=== PATIENT | male | born 1945 | race Caucasian/White ===

== ENCOUNTER 2023-09-20 09:03 | Emergency (ER) | payer OTHER, SELFPAY ==
[2023-09-20] VITALS (12 sets, daily range): BP systolic 143–187; BP diastolic 76–102; PULSE 55–72; RESP 12–22; TEMP 36.4–37; O2SAT 95–99; BMI 33.7
--- NOTE | 2023-09-20 09:41 | ED.DIZZY ---
HPI - Dizziness General Chief Complaint: Dizziness Stated Complaint: vertigo, sent by pcp Time Seen by Provider: 09/20/23 09:10 Source: patient Mode of arrival: Ambulatory History of Present Illness HPI Narrative: Patient is a 77-year-old male history of hypertension hyperlipidemia presents today with 2 days of dizziness. He reports that he was feeling his normal self and doing well until suddenly he got up in the middle of night to use the restroom he felt like he was very off balance. Over the last 48 hours he feels like he as needed to hold onto things. Yesterday he would multiple episodes of dizziness and vomiting. He actually had a routine appointment with his PCP yesterday who recommended meclizine in the Ulysses maneuver. He tried the Ulysses maneuver at home he said it made it worse he does not feel any better. He has no numbness tingling or weakness. He does feel like the room is moving left to right. He was able to sleep last night without any sort of difficulty. He has no chest pain or palpitations. Related Data Home Medications Medication Instructions Recorded Confirmed NITROGLYCERIN (#NITROSTAT) 0.4 mg sublingual PRN ##0 03/07/11 OMEPRAZOLE 20 mg PO Q DAY ##0 03/07/11 amlodipine 10 mg tablet (Norvasc) 10 mg PO Q DAY ##0 03/07/11 simvastatin 20 mg tablet (Zocor) 20 mg PO HS ##0 03/07/11 ERGOCALCIFEROL (VITAMIN D2) 8,000 iu PO ##0 08/31/16 (CALCIFEROL) allopurinol 300 mg tablet 300 mg PO ##0 08/31/16 diclofenac sodium 25 mg 50 mg OPHTH ##0 08/31/16 tablet,delayed release losartan 25 mg tablet 25 mg PO QDAY ##0 08/31/16 Previous Rx's Medication Instructions Recorded metoprolol tartrate 50 mg tablet 50 mg PO BID #60 tabs 09/01/16 meclizine 25 mg tablet 25 mg PO TID PRN dizziness #10 tabs 09/20/23 ondansetron 4 mg disintegrating 4 mg PO Q8H PRN nausea and 09/20/23 tablet vomiting #10 tabs Allergies Allergy/AdvReac Type Severity Reaction Status Date / Time No Known Drug Allergies Allergy Verified 09/20/23 09:47 Patient History Social History Smoking Status: Never smoker Smoking Status: Never smoker alcohol intake frequency: 0-2 drinks per day Substance Use Type: does not use Exam Initial Vital Signs Initial Vital Signs: Vital Signs Temperature 97.6 F 09/20/23 09:13 Pulse Rate 72 09/20/23 09:13 Respiratory Rate 20 09/20/23 09:13 Blood Pressure 187/102 H 09/20/23 09:13 Pulse Oximetry 96 09/20/23 09:13 Oxygen Delivery Method Room Air 09/20/23 09:13 GENERAL: Alert very pleasant 77-year-old male HEENT: Head atraumatic,EOMI, pupils reactive, no nystagmus, face symmetric, moist mucous membranes CARDIOVASCULAR: Regular rate and rhythm without murmurs, rubs or gallops. RESPIRATORY: Breath sounds equal bilaterally, no wheezes rales or rhonchi. ABDOMEN: Soft, nontender. Normoactive bowel sounds all 4 quadrants. No guarding or rebound. EXTREMITIES: Normal range of motion, no clubbing or edema. Neurovascularly intact NEUROLOGICAL: Alert and oriented x4.Normal gait and speech. Cranial nerves II through XII grossly intact. Good bteyqi-xa-oxor, good nxup-fa-ljhw, strength equal bilaterally, no dysarthria or aphasia, sensation in tact to soft touch bilaterally, no visual changes, no facial droop SKIN: Warm, dry, no laceration, no petechiae, no rashes or lesions. Scores NIH Stroke Scale Level of Conciousness: Alert, keenly responsive Ask month/age: Answers both questions correctly. Open/close eyes, close hand: Performs both tasks correctly Best gaze horizontal: Normal Visual lea: No visual loss Facial palsy: Normal symetrical movement Left arm drift: No drift for full 10 sec Right arm drift: No drift for full 10 sec Left leg drift: No drift for full 5 sec Right leg drift: No drift for full 5 sec Limb ataxia: Absent Sensory on face/arms/legs: Normal, no sensory loss Best language: No aphasia, normal Dysarthria: Normal Extinction or inattention: No abnormality Total NIH Stroke scale score: 0 Course Orders Ordered: ED Orders 09/20/23 12:42 MR head/brain wo con Stat Discontinued Medications Sodium Chloride (Normal Saline 0.9%) 1,000 mls @ 150 mls/hr IV CONT MATTHEW Last Infusion: 09/20/23 13:45 Dose: 0 mls/hr Documented By: Admin: 09/20/23 09:56 Dose: 150 mls/hr Documented By: MARY Meclizine HCl (Meclizine Hcl 12.5 Mg Tablet) 50 mg PO NOW ONE Stop: 09/20/23 09:44 Last Admin: 09/20/23 09:56 Dose: 50 mg Documented By: MARY Vital Signs Vital signs: Vital Signs - 8 hr 09/20/23 11:32 09/20/23 12:00 09/20/23 13:45 Temperature 98.6 F Pulse Rate 58 L 58 L 59 L Respiratory Rate 20 18 20 Blood Pressure 157/82 H 146/83 H 147/76 H Pulse Oximetry 97 96 98 Oxygen Delivery Method Room Air Room Air Room Air MDM - Dizziness Lab Data 09/20/23 09:52 09/20/23 09:52 Labs: Lab Results 09/20/23 Range/Units 09:52 WBC 6.0 (4.5-11.0) X10^3/uL RBC 4.58 (4.5-5.9) X10^6/uL Hgb 14.7 (13.5-17.5) g/dL Hct 43.4 (41-53) % MCV 94.9 (80-100) fL MCH 32.1 (26-34) PG MCHC 33.9 (30-36) % RDW 13.3 (11.6-14.8) % Plt Count 210 (150-400) X10^3/uL Neut % (Auto) 75.8 H (50-75) % Lymph % (Auto) 17.6 L (25-40) % [place] % (Auto) 4.8 (3-14) % Eos % (Auto) 1.2 L (2-4) % Baso % (Auto) 0.6 (0-2) % Neut # (Auto) 4600 (1831-5682) /uL Lymph # (Auto) 1100 (2197-6760) /uL [place] # (Auto) 300 (0-900) /uL Eos # (Auto) 100 (0-450) /uL Baso # (Auto) 0 (0-100) /uL Sodium 137 (137-145) mmol/L Potassium 4.0 (3.4-5.1) mmol/L Chloride 100 (98-107) mmol/L Carbon Dioxide 32 (22-32) mmol/L BUN 14 (9-20) mg/dL Creatinine 0.88 (0.66-1.25) mg/dL Estimated GFR > 60 (>60) mL/min BUN/Creatinine Ratio 15.9 (6-22) Glucose 136 H (80-110) mg/dL Calcium 9.9 (8.4-10.2) mg/dL Total Bilirubin 0.8 (0.2-1.3) mg/dL AST 34 (17-59) IU/L ALT 46 (<50) IU/L Alkaline Phosphatase 54 (38-126) U/L Total Creatine Kinase 93 (55-170) U/L Troponin I < 0.012 (0.01-0.034) ng/mL Total Protein 8.2 (6.3-8.2) g/dL Albumin 4.6 (3.5-5.0) g/dL Globulin 3.6 (1.7-4.1) g/dL Albumin/Globulin Ratio 1.3 (1.0-2.8) Lipase 75 (23-300) U/L Imaging Data CTA - brain/neck: Radiologist's Impression: PROCEDURE: CT ANGIO HEAD AND NECK INDICATIONS: dizzy x 2 days TECHNIQUE: After the administration of intravenous contrast, 1 mm thick sections acquired from the aortic arch through the [place] of [place]. MIP reformats of the arterial vasculature were utilized. For radiation dose reduction, the following was used: automated exposure control, adjustment of mA and/or kV according to patient size. COMPARISON: None. FINDINGS: Cerebral CT Angiogram: Internal carotid arteries: No acute findings. Intracranial ICA are patent with no significant stenosis. No occlusion. No aneurysm. Anterior cerebral arteries: Unremarkable. No significant stenosis. No occlusion. No aneurysm. Middle cerebral arteries: Unremarkable. No significant stenosis. No occlusion. No aneurysm. 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 The P2 segment is supplied by a widely patent posterior communicating artery. Remainder of the distal vasculature unremarkable. Basilar artery: Unremarkable. No significant stenosis. No occlusion. No aneurysm. Vertebral arteries: Unremarkable as visualized. Dural venous sinuses: Unremarkable given phase of enhancement. Other: Arterial phase brain parenchyma is unremarkable. Mucosal thickening noted along the floor of the maxillary sinus Neck CT Angiogram: Internal carotid arteries: Unremarkable. No significant stenosis. No dissection or occlusion. Trace atherosclerotic calcification noted in the left proximal ICA without stenosis Common carotid arteries: Unremarkable. No significant stenosis. No dissection or occlusion. External carotid arteries: Unremarkable. No occlusion. Vertebral arteries: Unremarkable. No significant stenosis. No dissection or occlusion. 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 Origins of the great vessels unremarkable. IMPRESSION: 1. Unremarkable CT angiogram of the head and neck without evidence of significant vascular stenosis, large vessel occlusion, or aneurysm. 2. 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 Approved by: Nuno Carmen M.D. on 09/20/2023 at 9:28 MR Brain: Radiologist's Impression: PROCEDURE: MR HEAD/BRAIN WO CON INDICATIONS: on going dizziness TECHNIQUE: Non-contrast axial T1 spin echo, axial T2 fast spin echo, sagittal and axial FLAIR, coronal T2 fast spin echo, axial gradient echo, axial diffusion and ADC through the brain. COMPARISON: [facility], CT, CT ANGIO HEAD AND NECK, 09/20/2023, 10:04. [facility], CR, XR CHEST 1V, 09/20/2023, 9:52. FINDINGS: Image quality: Excellent. CSF spaces: Ventricles appear symmetric in size and shape. Basal cisterns are patent. No extra-axial fluid collections. Brain: No intracranial bleeds or mass effects. There is cerebral volume loss for age. There are periventricular and deep white matter chronic small vessel ischemic changes. Brainstem appears normal. Diffusion-weighted images show no acute infarct. No chronic ischemic insults. Normal intravascular flow voids are present. Skull and face: Calvarial bone marrow is normal in signal. Orbits are normal. Sinuses: Moderate mucosal thickening can be seen within the maxillary sinuses. Xgqp-cs-vziiqzcs mucosal thickening can be seen elsewhere. IMPRESSION: No acute intracranial process is seen. No findings of acute or subacute infarction can be seen. Additional findings: Maxillary sinus disease Dictated by: Oc Echols M.D. on 09/20/2023 at 12:02 Approved by: Oc Echols M.D. on 09/20/2023 at 12:03 ECG Data Interpretation: Normal sinus rhythm rate 66 MA interval 156 QRS [address] changes MDM Narrative Medical decision making narrative: Patient 77-year-old male history of hyperlipidemia hypertension presenting today with 48 hours dizziness. Symptoms are definitely worse with movement can find positions of comfort and sleep at night. NIH stroke scale is 0 Blood work has been reviewed no clinical significant abnormalities Imaging reviewed CT angio head and neck no critical stenosis or masses chest x-ray no acute findings MRI no evidence of stroke EKG reviewed Patient's symptoms are definitely worse with movement he has no nystagmus symptoms are better after meclizine. CT angio does not show critical stenosis or mass. Patient reports that he still isn't feeling quite right he is having some visual difficulty he tried to ambulate to the restroom but he still needed little assistance and felt a little bit off. MRI was ordered and fortunately did not show any posterior stroke. Patient's symptoms are consistent with vertigo Feeling better after meclizine and ambulated with a steady gait. Discharge Plan Departure Patient Disposition: Home Clinical Impression: Benign paroxysmal positional vertigo Instructions: DI for Vertigo Activity Restrictions/Additional Instructions: *You have been diagnosed with vertigo *What to do: At this time I hope that this improves for you. You may require an MRI if symptoms continue please talk to your PCP about *Continue to take medications as directed Meclizine 25-50 mg every 8 hours if needed for dizziness Zofran 4 mg every 8 hours if needed for nausea or vomiting *Follow up with your primary care provider in 2-3 days or call [phone] *Return to ER if you should have increased dizziness headache or fall [or] any new, worsening or concerning symptoms Prescriptions: New meclizine 25 mg tablet 25 mg PO TID PRN (Reason: dizziness) Qty: 10 0RF ondansetron 4 mg tablet,disintegrating 4 mg PO Q8H PRN (Reason: nausea and vomiting) Qty: 10 0RF No Action amlodipine [Norvasc] 10 MG tablet 10 mg PO Q DAY Qty: 0 simvastatin [Zocor] 20 MG tablet 20 mg PO HS Qty: 0 NITROGLYCERIN (#NITROSTAT) 0.4 mg Sublingual PRN Qty: 0 OMEPRAZOLE 20 mg PO Q DAY Qty: 0 allopurinol 300 MG tablet 300 mg PO Qty: 0 losartan 25 MG tablet 25 mg PO QDAY Qty: 0 diclofenac sodium 25 MG tablet,delayed release (DR/EC) 50 mg OPHTH Qty: 0 ERGOCALCIFEROL (VITAMIN D2) (CALCIFEROL) 8,000 iu PO Qty: 0 metoprolol tartrate 50 MG tablet 50 mg PO BID Qty: 60 0RF Referrals: Suhail Sanchez MD [Primary Care Provider] - Stand Alone Forms: Patient Portal/API
--- NOTE | 2023-09-20 09:42 | DI.RAD.S_ITS ---
PROCEDURE: XR CHEST 1V INDICATIONS: chest pain TECHNIQUE: One view of the chest was acquired. COMPARISON: [facility], , CHEST 1 VIEW, 08/31/2016, 18:58. FINDINGS: Surgical changes and devices: None. Lungs and pleura: Lungs are clear. No pleural effusions or pneumothorax. Mediastinum: Mediastinal contours appear normal. Heart size is normal. Bones and chest wall: No suspicious bony lesions. Overlying soft tissues appear unremarkable. IMPRESSION: No acute cardiopulmonary pathology. Dictated by: Mike Smith M.D. on 09/20/2023 at 10:04 Approved by: Mike Smith M.D. on 09/20/2023 at 10:04
[2023-09-20] MEDS: SODIUM CHLORIDE 0.9% 1,000 ML 150 ML IV (09:56)
[2023-09-20] MEDS: MECLIZINE HCL 12.5 MG TABLET 50 MG PO (09:56)
--- NOTE | 2023-09-20 09:59 | DI.CT.S_ITS ---
PROCEDURE: CT ANGIO HEAD AND NECK INDICATIONS: dizzy x 2 days TECHNIQUE: After the administration of intravenous contrast, 1 mm thick sections acquired from the aortic arch through the [place] of [place]. MIP reformats of the arterial vasculature were utilized. For radiation dose reduction, the following was used: automated exposure control, adjustment of mA and/or kV according to patient size. COMPARISON: None. FINDINGS: Cerebral CT Angiogram: Internal carotid arteries: No acute findings. Intracranial ICA are patent with no significant stenosis. No occlusion. No aneurysm. Anterior cerebral arteries: Unremarkable. No significant stenosis. No occlusion. No aneurysm. Middle cerebral arteries: Unremarkable. No significant stenosis. No occlusion. No aneurysm. Posterior cerebral arteries: Hypoplasia/aplasia of the right P1 SOLDERING TECHNICIAN noted. The P2 segment is supplied by a widely patent posterior communicating artery. Remainder of the distal vasculature unremarkable. Basilar artery: Unremarkable. No significant stenosis. No occlusion. No aneurysm. Vertebral arteries: Unremarkable as visualized. Dural venous sinuses: Unremarkable given phase of enhancement. Other: Arterial phase brain parenchyma is unremarkable. Mucosal thickening noted along the floor of the maxillary sinus Neck CT Angiogram: Internal carotid arteries: Unremarkable. No significant stenosis. No dissection or occlusion. Trace atherosclerotic calcification noted in the left proximal ICA without stenosis Common carotid arteries: Unremarkable. No significant stenosis. No dissection or occlusion. External carotid arteries: Unremarkable. No occlusion. Vertebral arteries: Unremarkable. No significant stenosis. No dissection or occlusion. 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 Origins of the great vessels unremarkable. IMPRESSION: 1. Unremarkable CT angiogram of the head and neck without evidence of significant vascular stenosis, large vessel occlusion, or aneurysm. 2. 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 Approved by: Nuno Carmen M.D. on 09/20/2023 at 9:28
[2023-09-20 10:03] LABS: Add Manual Diff / Slide Review NO; Basophils Absolute Auto 0 /uL (0-100); Basophils Percent Auto 0.6 % (0-2); Eosinophils Absolute Auto 100 /uL (0-450); Eosinophils Percent Auto 1.2 % (2-4); Hematocrit 43.4 % (41-53); Hemoglobin 14.7 g/dL (13.5-17.5); Lymphocytes Absolute Auto 1100 /uL (1100-4500); Lymphocytes Percent Auto 17.6 % (25-40); Mean Corpuscular HGB Conc 33.9 % (30-36); Mean Corpuscular Hemoglobin 32.1 PG (26-34); Mean Corpuscular Volume 94.9 fL (80-100); Monocytes Absolute Auto 300 /uL (0-900); Monocytes Percent Auto 4.8 % (3-14); Neutrophils Absolute Auto 4600 /uL (1500-7000); Neutrophils Percent Auto 75.8 % (50-75); Platelet Count 210 X10^3/uL (150-400); Red Blood Cell Count 4.58 X10^6/uL (4.5-5.9); Red Cell Distribution Width 13.3 % (11.6-14.8)
[2023-09-20 10:16] LABS: Alanine Aminotransferase 46 IU/L (<50); Albumin 4.6 g/dL (3.5-5.0); Albumin Globulin Ratio 1.3 (1.0-2.8); Alkaline Phosphatase 54 U/L (38-126); Aspartate Aminotransferase 34 IU/L (17-59); BUN Creatinine Ratio 15.9 (6-22); Bilirubin Total 0.8 mg/dL (0.2-1.3); Blood Urea Nitrogen 14 mg/dL (9-20); Calcium 9.9 mg/dL (8.4-10.2); Carbon Dioxide 32 mmol/L (22-32); Chloride 100 mmol/L (98-107); Creatine Kinase 93 U/L (55-170); Estimated Glomerular Filt Rate > 60 mL/min (>60); Globulin 3.6 g/dL (1.7-4.1); Glucose 136 mg/dL (80-110); HEMOLYSIS 22 (0-50); Lipase 75 U/L (23-300); Sodium 137 mmol/L (137-145); Total Protein 8.2 g/dL (6.3-8.2)
[2023-09-20 10:28] LABS: Troponin I < 0.012 ng/mL (0.01-0.034)
--- NOTE | 2023-09-20 11:27 | PC.NURSE ---
Patient complains of still feeling unsteady due to vertigo. Patient states I feel the world spinning whenever I take a do any major movements. No complaints of physical weakness.
--- NOTE | 2023-09-20 12:39 | PC.NURSE ---
Spoke with daughter on the phone with pt's verbal consent. Daughter states that pt is very sharp at baseline. Pt uses wheelchair at home and can only take a few steps at a time due to her hx of MS. Daughter states that she would like to investigate options for in-home care due to pt's resistance to long-term care facilities. Pt remains a&ox4.
--- NOTE | 2023-09-20 12:42 | DI.MRI.S_ITS ---
PROCEDURE: MR HEAD/BRAIN WO CON INDICATIONS: on going dizziness TECHNIQUE: Non-contrast axial T1 spin echo, axial T2 fast spin echo, sagittal and axial FLAIR, coronal T2 fast spin echo, axial gradient echo, axial diffusion and ADC through the brain. COMPARISON: [facility], CT, CT ANGIO HEAD AND NECK, 09/20/2023, 10:04. [facility], CR, XR CHEST 1V, 09/20/2023, 9:52. FINDINGS: Image quality: Excellent. CSF spaces: Ventricles appear symmetric in size and shape. Basal cisterns are patent. No extra-axial fluid collections. Brain: No intracranial bleeds or mass effects. There is cerebral volume loss for age. There are periventricular and deep white matter chronic small vessel ischemic changes. Brainstem appears normal. Diffusion-weighted images show no acute infarct. No chronic ischemic insults. Normal intravascular flow voids are present. Skull and face: Calvarial bone marrow is normal in signal. Orbits are normal. Sinuses: Moderate mucosal thickening can be seen within the maxillary sinuses. Trne-ud-jhudidub mucosal thickening can be seen elsewhere. IMPRESSION: No acute intracranial process is seen. No findings of acute or subacute infarction can be seen. Additional findings: Maxillary sinus disease Dictated by: Oc Echols M.D. on 09/20/2023 at 12:02 Approved by: Oc Echols M.D. on 09/20/2023 at 12:03
== END 2023-09-20 13:46 | disposition home or self-care (01) ==
PROVIDERS: Emergency Provider Emergency Medicine; PCP Family Medicine
DX: H81.10 Benign paroxysmal vertigo, unspecified ear (principal); R29.700 NIHSS score 0
CPT/HCPCS: 36415; 70496; 70498; 70551; 71045; 80053; 82550; 83690; 84484; 85025; 93005; 93010; 96360; 96361; 99284

== ENCOUNTER 2023-10-11 08:30 | Day surgery (SDC) | payer OTHER, SELFPAY ==
--- NOTE | 2023-10-11 | PATH_ITS ---
[facility] Accession Number: [id number] No. of containers..01 Tissue . 01 Material submitted: . colon - RANDOM COLON BX . 01 Diagnosis: RANDOM COLON, BIOPSY: Colonic mucosa with no diagnostic abnormality. Negative for active, chronic, and microscopic colitis. Negative for dysplasia and malignancy. [facility] 10/17/2023 1129 Local . 01 Electronically signed: . Ramírez Alexander MD, PhD, Pathologist NPI- [id number] . 01 Gross description: . RANDOM COLON BX: Received in formalin are multiple fragment(s) of gill, soft tissue measuring 0.1 x 0.1 x 0.1 cm to 0.4 x 0.3 x 0.2 cm submitted entirely in 1 cassette(s) /SHAZIA 10/12/20232038 Local . 01 Pathologist provided ICD-10: R19.4 . 01 CPT . 997874 Specimen Comment: A courtesy copy of this report has been sent to [phone] Performed at: 01 [facility] [address] [place] [address], [place], [place] [id number] MD Valente Gallagher MD Phone: [phone]
--- NOTE | 2023-10-11 08:52 | P.HP_ITS ---
History of Present Illness History of Present Illness Date Patient Seen: 10/11/23 Chief complaint: Colonoscopy Narrative: Diarrhea with positive fecal calprotectin [facility] Social History Smoking Status: Never smoker Meds Home Medications and Allergies Home Medications Medication Instructions Recorded Confirmed Type NITROGLYCERIN (#NITROSTAT) 0.4 mg sublingual PRN ##0 03/07/11 History OMEPRAZOLE 20 mg PO Q DAY ##0 03/07/11 10/11/23 History amlodipine 10 mg tablet (Norvasc) 10 mg PO Q DAY ##0 03/07/11 10/11/23 History simvastatin 20 mg tablet (Zocor) 20 mg PO HS ##0 03/07/11 10/11/23 History ERGOCALCIFEROL (VITAMIN D2) 8,000 iu PO ##0 08/31/16 History (CALCIFEROL) allopurinol 300 mg tablet 300 mg PO DAILY ##0 08/31/16 10/11/23 History diclofenac sodium 25 mg 50 mg OPHTH ##0 08/31/16 History tablet,delayed release losartan 25 mg tablet 25 mg PO QDAY ##0 08/31/16 10/11/23 History metoprolol tartrate 50 mg tablet 50 mg PO BID #60 tabs 09/01/16 10/11/23 Rx meclizine 25 mg tablet 25 mg PO TID PRN dizziness #10 tabs 09/20/23 10/11/23 Rx ondansetron 4 mg disintegrating 4 mg PO Q8H PRN nausea and 09/20/23 10/11/23 Rx tablet vomiting #10 tabs Allergies Allergy/AdvReac Type Severity Reaction Status Date / Time No Known Drug Allergies Allergy Verified 10/11/23 08:43 Exam Narrative Exam Narrative: Oropharynx free of lesions Chest clear to auscultation percussion Cardiac exam reveals no S3 or murmur Assessment & Plan Assessment & Plan narrative: Loose stools with positive stool test indicating some degree of inflammation rule out colitis. Risks benefits alternatives have been explained.
[2023-10-11] MEDS: LACTATED RINGERS 1,000 ML 100 ML IV (08:53)
--- NOTE | 2023-10-11 08:53 | P.OP.COLON_ITS ---
Operative Date/Time/Diagnoses Date of procedure: 10/11/23 Pre-op diagnosis: See indication and findings Procedure & Clinicians Study performed: Colonoscopy Indications: Diarrhea Surgeon: Raj Cade Procedure Notes Procedure in detail: After informed consent was obtained the patient was placed in left lateral de cubitus position. The video colonoscope was placed in the rectum slowly advanced to the cecum. Ic valve was identified and intubated. On slow withdrawal mucosa was carefully examined. The scope was removed. The patient of the procedure well. Blood loss none Complications none Sedation mac Findings 1. Normal terminal ileum 2. Normal colonoscopy to cecum, biopsies taken randomly Will be in touch regarding biopsies looking for microscopic colitis. Further recommendations will follow.
[2023-10-11 08:56] VITALS: BP 164/70; PULSE 89; RESP 16; TEMP 36.4; O2SAT 95
[2023-10-11 09:57] VITALS: BP 109/71; PULSE 64; RESP 11; TEMP 36.6; O2SAT 94
[2023-10-11 10:02] VITALS: BP 116/73; PULSE 56; RESP 10; O2SAT 98
[2023-10-11 10:07] VITALS: BP 125/83; PULSE 69; RESP 17; O2SAT 95
[2023-10-11 10:12] VITALS: BP 132/86; PULSE 62; RESP 16; TEMP 36.6; O2SAT 98
== END 2023-10-11 10:23 | disposition home or self-care (01) ==
PROVIDERS: PCP Family Medicine; Referring Provider Internal Medicine Gastroenterology; Visit Provider Internal Medicine Gastroenterology
PROC: 0DJD8ZZ Inspection of Lower Intestinal Tract, Via Natural or Artificial Opening Endoscopic (ICD-10-PCS; CPT 45378; principal; 2023-10-11 09:30)
DX: R19.7 Diarrhea, unspecified (principal)
CPT/HCPCS: 45380; J2704

== ENCOUNTER 2024-08-21 16:45 | Emergency (ER) | payer OTHER, SELFPAY ==
[2024-08-21] VITALS (10 sets, daily range): BP systolic 134–203; BP diastolic 79–104; PULSE 65–84; RESP 8–18; TEMP 36.7; O2SAT 95–100; BMI 34.0
--- NOTE | 2024-08-21 17:18 | DI.RAD.S_ITS ---
PROCEDURE: XR CHEST 1V INDICATIONS: chest pain TECHNIQUE: One view of the chest was acquired. COMPARISON: [facility], [facility], XR CHEST 1V, 09/20/2023, 9:52. [facility], , CHEST 1 VIEW, 08/31/2016, 18:58. FINDINGS: Surgical changes and devices: None. Lungs and pleura: Lungs are clear. No pleural effusions or pneumothorax. Mediastinum: Mediastinal contours appear normal. Heart size is normal. Bones and chest wall: No suspicious bony lesions. Overlying soft tissues appear unremarkable. IMPRESSION: No acute cardiothoracic process. Dictated by: Miguel Angel Reeder M.D. on 08/21/2024 at 17:32 Approved by: Miguel Angel Reeder M.D. on 08/21/2024 at 17:32
--- NOTE | 2024-08-21 17:18 | EKG_ITS ---
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
[2024-08-21 17:25] LABS: INR 1.1 (0.9-1.3); Prothrombin Time 12.1 SECONDS (9.4-12.5)
[2024-08-21 17:27] LABS: PTT Partial Thromboplastin Tim 27 SECONDS (25.1-36.5)
[2024-08-21 17:30] LABS: Alanine Aminotransferase 41 IU/L (<50); Albumin 4.7 g/dL (3.5-5.0); Albumin Globulin Ratio 1.4 (1.0-2.8); Alkaline Phosphatase 42 U/L (38-126); Aspartate Aminotransferase 44 IU/L (17-59); BUN Creatinine Ratio 18.9 (6-22); Bilirubin Total 0.6 mg/dL (0.2-1.3); Blood Urea Nitrogen 20 mg/dL (9-20); Calcium 9.1 mg/dL (8.4-10.2); Carbon Dioxide 29 mmol/L (22-32); Chloride 102 mmol/L (98-107); Creatine Kinase 95 U/L (55-170); Estimated Glomerular Filt Rate > 60 mL/min (>60); Globulin 3.3 g/dL (1.7-4.1); Glucose 118 mg/dL (80-110); Lipase 168 U/L (23-300); Magnesium 1.9 mg/dL (1.6-2.3); Sodium 138 mmol/L (137-145)
[2024-08-21 17:39] LABS: HEMOLYSIS 104 (0-50)
[2024-08-21 17:40] LABS: Potassium 4.2 mmol/L (3.4-5.1)
[2024-08-21 17:42] LABS: NT-proBNP (BNP-Adult 18+) 113 pg/mL (<450); Troponin I < 0.012 ng/mL (0.01-0.034)
[2024-08-21 17:46] LABS: Bacteria Urine Occasional (0-1); RBC Urine 0-1/HPF (0-5/HPF); Squamous Epithelial Cell Urine 0-1 /HPF (0-5/HPF); Urine Volume 10mL (spun); WBC Urine 0-1/HPF (0-5/HPF)
[2024-08-21 17:47] LABS: Culture Indicated Urine Cult Not Indicated
[2024-08-21 17:50] LABS: Add Manual Diff / Slide Review NO; Basophils Absolute Auto 100 /uL (0-100); Basophils Percent Auto 1.1 % (0-2); Eosinophils Absolute Auto 200 /uL (0-450); Eosinophils Percent Auto 2.3 % (2-4); Hematocrit 41.3 % (41-53); Hemoglobin 13.9 g/dL (13.5-17.5); Lymphocytes Absolute Auto 2500 /uL (1100-4500); Mean Corpuscular HGB Conc 33.6 % (30-36); Mean Corpuscular Hemoglobin 32.9 PG (26-34); Monocytes Absolute Auto 700 /uL (0-900); Monocytes Percent Auto 7.8 % (3-14); Neutrophils Absolute Auto 5200 /uL (1500-7000); Neutrophils Percent Auto 59.8 % (50-75); Platelet Count 195 X10^3/uL (150-400); Red Blood Cell Count 4.22 X10^6/uL (4.5-5.9); Red Cell Distribution Width 13.5 % (11.6-14.8); White Blood Cell Count 8.6 X10^3/uL (4.5-11.0)
--- NOTE | 2024-08-21 19:05 | ED_ITS ---
HPI - Arrhythmia/Palpitations General Chief Complaint: Arrhythmia/Palpitations Stated Complaint: irregular heartrate, sent by ins RN Time Seen by Provider: 08/21/24 17:18 Source: patient, RN notes reviewed and old records reviewed Mode of arrival: Ambulatory Limitations: no limitations History of Present Illness HPI narrative: 78-year-old male history of hypertension, dyslipidemia, BPH, GERD, gout on aspirin 81 mg daily who presents with complaint of feeling like having some irregular and extra beats on and off and also some bloating of his abdomen. Patient notes symptoms seemed to correlate somewhat with being on prednisone about a week ago was on for 5 days for back discomfort. His back pain improved significantly but he noticed a day or 2 into the prednisone he has a lot of abdominal bloating and discomfort simethicone was somewhat helpful but it has been persistent. He also notes that his heartbeat has been occasionally sort of intermittent when he was palpating his pulse. Patient states he has not had any fevers no chills. He is felt generally cold. He has had no chest pain or shortness of breath. He was not had any cough. He has not had any congestion symptoms. He denies any abdominal pain. He states he has been belching a lot but does not relieve his symptoms all the time. No nausea or vomiting. Normal bowel movements without any discoloration black or blood. No dysuria urgency or frequency. Has not had any swelling of his extremities. Patient notes he did use to take omeprazole daily but stopped that some time ago he normally takes atenolol, amlodipine, allopurinol, aspirin 81 mg, losartan, pravastatin and tamsulosin. Patient intermittently takes diclofenac but has not taken it recently. Prior hip surgery. Allergy to lisinopril causes cough. No tobacco, rare alcohol, no recreational drugs. His primary care is Dr. Suhail Sanchez. Related Data Home Medications Medication Instructions Recorded Confirmed NITROGLYCERIN (#NITROSTAT) 0.4 mg sublingual PRN ##0 03/07/11 OMEPRAZOLE 20 mg PO Q DAY ##0 03/07/11 10/11/23 amlodipine 10 mg tablet (Norvasc) 10 mg PO Q DAY ##0 03/07/11 10/11/23 simvastatin 20 mg tablet (Zocor) 20 mg PO HS ##0 03/07/11 10/11/23 ERGOCALCIFEROL (VITAMIN D2) 8,000 iu PO ##0 08/31/16 (CALCIFEROL) allopurinol 300 mg tablet 300 mg PO DAILY ##0 08/31/16 10/11/23 diclofenac sodium 25 mg 50 mg OPHTH ##0 08/31/16 tablet,delayed release losartan 25 mg tablet 25 mg PO QDAY ##0 08/31/16 10/11/23 Previous Rx's Medication Instructions Recorded metoprolol tartrate 50 mg tablet 50 mg PO BID #60 tabs 09/01/16 meclizine 25 mg tablet 25 mg PO TID PRN dizziness #10 tabs 09/20/23 ondansetron 4 mg disintegrating 4 mg PO Q8H PRN nausea and 09/20/23 tablet vomiting #10 tabs Allergies Allergy/AdvReac Type Severity Reaction Status Date / Time No Known Drug Allergies Allergy Verified 10/11/23 08:43 Review of Systems Review of Systems ROS Unobtainable: All systems reviewed & are unremarkable except as noted in HPI and below Patient History Social History Smoking Status: Never smoker alcohol intake: current Smoking Status: Never smoker alcohol intake frequency: holidays/special occasions only Exam Narrative Exam Narrative: GENERAL: Alert and oriented x three, obese male in mild distress HEENT: Head normocephalic, atraumatic, EOMI, pupils reactive, face symmetric, moist mucous membranes NECK: Supple, full range of motion CARDIOVASCULAR: Regular rate and rhythm without murmurs, rubs or gallops. No JVD. No edema. RESPIRATORY: Breath sounds equal bilaterally, no wheezes rales or rhonchi. ABDOMEN: Soft, nontender. Normoactive bowel sounds all 4 quadrants. No guarding or rebound, rigidity, no mass : No CVA tenderness EXTREMITIES: Normal range of motion, no clubbing or edema. Neurovascularly intact NEUROLOGICAL: Cranial nerves II through XII grossly intact. Moving all extremities SKIN: Warm, dry, no petechiae, no rashes or lesions. Initial Vital Signs Initial Vital Signs: Vital Signs Pulse Rate 74 08/21/24 16:47 Respiratory Rate 18 08/21/24 16:47 Blood Pressure 203/104 H 08/21/24 16:47 Pulse Oximetry 97 08/21/24 16:47 Oxygen Delivery Method Room Air 08/21/24 16:47 Course Orders Ordered: ED Orders 08/21/24 17:00 Comprehensive Metabolic Panel Stat Lipase Stat Magnesium Stat NT-proBNP (BNP-Adult 18+) Stat PTT Partial Thromboplastin Giovanny Stat Prothrombin Time INR Stat Troponin & CK Cardiac Panel Stat 08/21/24 17:10 Urine Microscopic Stat 08/21/24 17:18 XR chest 1V Stat EKG-12 Lead Stat 08/21/24 17:30 Complete Blood Count AUTO DIFF Stat 08/21/24 19:14 Trop I [Troponin I] Stat Vital Signs Vital signs: Vital Signs - 8 hr 08/21/24 16:47 08/21/24 16:54 08/21/24 17:11 Temperature Pulse Rate 74 79 79 Respiratory Rate 18 13 12 Blood Pressure 203/104 H 189/104 H 182/99 H Pulse Oximetry 97 97 97 Oxygen Delivery Method Room Air 08/21/24 17:21 08/21/24 18:20 08/21/24 18:30 Temperature 98.1 F Pulse Rate 76 74 Respiratory Rate 13 15 Blood Pressure 163/88 H Pulse Oximetry 100 97 Oxygen Delivery Method Room Air 08/21/24 18:30 Temperature Pulse Rate 84 Respiratory Rate 18 Blood Pressure 161/93 H Pulse Oximetry 99 Oxygen Delivery Method Room Air MDM - Arrhythmia/Palpitations Lab Data 08/21/24 17:30 08/21/24 17:00 Labs: Lab Results 08/21/24 08/21/24 08/21/24 Range/Units 17:00 17:10 17:30 WBC 8.6 (4.5-11.0) X10^3/uL RBC 4.22 L (4.5-5.9) X10^6/uL Hgb 13.9 (13.5-17.5) g/dL Hct 41.3 (41-53) % MCV 98.0 (80-100) fL MCH 32.9 (26-34) PG MCHC 33.6 (30-36) % RDW 13.5 (11.6-14.8) % Plt Count 195 (150-400) X10^3/uL Neut % (Auto) 59.8 (50-75) % Lymph % (Auto) 29.0 (25-40) % Glynn % (Auto) 7.8 (3-14) % Eos % (Auto) 2.3 (2-4) % Baso % (Auto) 1.1 (0-2) % Neut # (Auto) 5200 (3768-8828) /uL Lymph # (Auto) 2500 (7756-5943) /uL Glynn # (Auto) 700 (0-900) /uL Eos # (Auto) 200 (0-450) /uL Baso # (Auto) 100 (0-100) /uL PT 12.1 (9.4-12.5) SECONDS INR 1.1 (0.9-1.3) APTT 27 (25.1-36.5) SECONDS Sodium 138 (137-145) mmol/L Potassium 4.2 (3.4-5.1) mmol/L Chloride 102 (98-107) mmol/L Carbon Dioxide 29 (22-32) mmol/L BUN 20 (9-20) mg/dL Creatinine 1.06 (0.66-1.25) mg/dL Estimated GFR > 60 (>60) mL/min BUN/Creatinine Ratio 18.9 (6-22) Glucose 118 H (80-110) mg/dL Calcium 9.1 (8.4-10.2) mg/dL Magnesium 1.9 (1.6-2.3) mg/dL Total Bilirubin 0.6 (0.2-1.3) mg/dL AST 44 (17-59) IU/L ALT 41 (<50) IU/L Alkaline Phosphatase 42 (38-126) U/L Total Creatine Kinase 95 (55-170) U/L Troponin I < 0.012 (0.01-0.034) ng/mL NT-Pro-B Natriuret Pep 113 (<450) pg/mL Total Protein 8.0 (6.3-8.2) g/dL Albumin 4.7 (3.5-5.0) g/dL Globulin 3.3 (1.7-4.1) g/dL Albumin/Globulin Ratio 1.4 (1.0-2.8) Lipase 168 (23-300) U/L Urine RBC 0-1/hpf (0-5/HPF) Urine WBC 0-1/hpf (0-5/HPF) Ur Squamous Epith Cells 0-1 /hpf (0-5/HPF) Urine Bacteria Occasional (0-1) (None) Ur Culture Indicated? Cult not indicated Vol Urine Centrifuged 10ml (spun) 08/21/24 Range/Units 19:15 WBC (4.5-11.0) X10^3/uL RBC (4.5-5.9) X10^6/uL Hgb (13.5-17.5) g/dL Hct (41-53) % MCV (80-100) fL MCH (26-34) PG MCHC (30-36) % RDW (11.6-14.8) % Plt Count (150-400) X10^3/uL Neut % (Auto) (50-75) % Lymph % (Auto) (25-40) % Glynn % (Auto) (3-14) % Eos % (Auto) (2-4) % Baso % (Auto) (0-2) % Neut # (Auto) (1798-5477) /uL Lymph # (Auto) (6911-1216) /uL Glynn # (Auto) (0-900) /uL Eos # (Auto) (0-450) /uL Baso # (Auto) (0-100) /uL PT (9.4-12.5) SECONDS INR (0.9-1.3) APTT (25.1-36.5) SECONDS Sodium (137-145) mmol/L Potassium (3.4-5.1) mmol/L Chloride (98-107) mmol/L Carbon Dioxide (22-32) mmol/L BUN (9-20) mg/dL Creatinine (0.66-1.25) mg/dL Estimated GFR (>60) mL/min BUN/Creatinine Ratio (6-22) Glucose (80-110) mg/dL Calcium (8.4-10.2) mg/dL Magnesium (1.6-2.3) mg/dL Total Bilirubin (0.2-1.3) mg/dL AST (17-59) IU/L ALT (<50) IU/L Alkaline Phosphatase (38-126) U/L Total Creatine Kinase (55-170) U/L Troponin I < 0.012 (0.01-0.034) ng/mL NT-Pro-B Natriuret Pep (<450) pg/mL Total Protein (6.3-8.2) g/dL Albumin (3.5-5.0) g/dL Globulin (1.7-4.1) g/dL Albumin/Globulin Ratio (1.0-2.8) Lipase (23-300) U/L Urine RBC (0-5/HPF) Urine WBC (0-5/HPF) Ur Squamous Epith Cells (0-5/HPF) Urine Bacteria (None) Ur Culture Indicated? Vol Urine Centrifuged Urine Dip Bedside Urine Glucose Negative Bedside Urine Bilirubin - Negative Bedside Urine Ketone - Negative Urine Specific [place] 1.015 Bedside Urine Occult Blood + Bedside Urine pH 7.0 Bedside Urine Protein - Negative Bedside Urine Urobilinogen - Negative Bedside Urine Nitrite - Negative Bedside Urine Leukocytes - Negative Esterase Imaging Data Chest x-ray: Radiologist's Impresson: Close Chest X-Ray (Signed) Miguel Angel Reeder - 08/21/24 Brain MRI (Signed) Oc Echols - 09/20/23 Head/Neck CTA (Signed) Nuno Carmen - 09/20/23 Chest X-Ray (Signed) Mike Smith - 09/20/23 Launch[facility] [address] XRay Report Signed Patient: Rudi Acosta MR#: [id number] : 1945 Acct:[id number] Age/Sex: 78 / M Date of Service: 08/21/24 Loc: ED Accession Number: [id number] Procedure: XR chest 1V Ordering Provider: Stacie Saini MD PROCEDURE: XR CHEST 1V INDICATIONS: chest pain TECHNIQUE: One view of the chest was acquired. COMPARISON: [facility], XR CHEST 1V, 09/20/2023, 9:52. [facility], CHEST 1 VIEW, 08/31/2016, 18:58. FINDINGS: Surgical changes and devices: None. Lungs and pleura: Lungs are clear. No pleural effusions or pneumothorax. Mediastinum: Mediastinal contours appear normal. Heart size is normal. Bones and chest wall: No suspicious bony lesions. Overlying soft tissues appear unremarkable. IMPRESSION: No acute cardiothoracic process. Dictated by: Miguel Angel Reeder M.D. on 08/21/2024 at 17:32 Approved by: Miguel Angel Reeder M.D. on 08/21/2024 at 17:32 ECG Data Attestation: I personally reviewed and interpreted this ECG as follows: Prior ECG tracings: available for review Interpretation: Sinus rhythm premature atrial complex rate of 73 CA 146 QRS of 94 QTC of 436, no acute ST elevation or depression noted. Patient has prior from 09/20/[address] changes appears similar. MDM Narrative Medical decision making narrative: 78-year-old male presents with complaint of irregular heart rate has had occasional PVCs but no significant arrhythmias here in the department had a Holter or ZIO patch about 5 years ago but discussed with patient would recommend to have repeat. Patient has also noticed a lot of belching and gas and feeling bloated. He was not having any pain his labs look up or overall reassuring he notes he recently had prednisone which may have increased these symptoms and has not been taking his omeprazole regularly so it had him restart omeprazole 20 mg daily. Chest x-ray shows no acute change EKG shows sinus rhythm premature atrial complex has prior from 09/20/[address] changes Labs show white count 8.6 hemoglobin of 13.9 platelets of 195, coags are negative, electrolytes are appropriate, BUN is 20 with a creatinine 1.06 glucose of 118 calcium 9.1 Mag of 1.9 LFTs are negative troponins less than 0.012 with a BNP of 113 and a lipase of 168 Point of care urine is negative except for +blood Urine micro shows 1 red cell 1 white cell 1 squamous 1 bacteria Discharge Plan Departure Patient Disposition: Home Clinical Impression: Palpitations Activity Restrictions/Additional Instructions: Please follow up for with your physician to be set up for a ZIO patch Holter monitor to check for any arrhythmias we have not captured any arrhythmias here today but you have had occasional PVCs or extra beats. Some of your abdominal symptoms maybe from your recent prednisone I would recommend restarting your omeprazole 20 mg daily for the next 2-3 weeks to see if this improves your symptoms. Please return if you have new or worsening symptoms, chest pain, shortness of breath, persistently fast or irregular heart rate, lightheadedness or passing out, new swelling in your extremities, abdominal pain, vomiting, black or bloody stools or other new or concerning changes. Prescriptions: No Action amlodipine [Norvasc] 10 MG tablet 10 mg PO Q DAY Qty: 0 simvastatin [Zocor] 20 MG tablet 20 mg PO HS Qty: 0 NITROGLYCERIN (#NITROSTAT) 0.4 mg Sublingual PRN Qty: 0 OMEPRAZOLE 20 mg PO Q DAY Qty: 0 allopurinol 300 MG tablet 300 mg PO DAILY Qty: 0 losartan 25 MG tablet 25 mg PO QDAY Qty: 0 diclofenac sodium 25 MG tablet,delayed release (DR/EC) 50 mg OPHTH Qty: 0 ERGOCALCIFEROL (VITAMIN D2) (CALCIFEROL) 8,000 iu PO Qty: 0 metoprolol tartrate 50 MG tablet 50 mg PO BID Qty: 60 0RF meclizine 25 mg tablet 25 mg PO TID PRN (Reason: dizziness) Qty: 10 0RF ondansetron 4 mg tablet,disintegrating 4 mg PO Q8H PRN (Reason: nausea and vomiting) Qty: 10 0RF Referrals: Suhail Sanchez MD [Primary Care Provider] - Stand Alone Forms: Patient Portal/API/Survey
[2024-08-21 19:57] LABS: Troponin I < 0.012 ng/mL (0.01-0.034)
== END 2024-08-21 20:20 | disposition home or self-care (01) ==
PROVIDERS: Emergency Medicine; Emergency Provider Emergency Medicine; PCP Family Medicine
DX: R00.2 Palpitations (principal); R07.9 Chest pain, unspecified; R14.0 Abdominal distension (gaseous)
CPT/HCPCS: 36415; 71045; 80053; 81003; 81015; 82550; 83690; 83735; 83880; 84484; 85025; 85610; 85730; 93005; 93010; 99283; 99284